=== PATIENT | male | born 1960 | race Hispanic/Latino ===

== ENCOUNTER 2020-07-08 05:48 | Day surgery (SDC) | payer BC ==
[~2020-07-08] VITALS: Ht 185.4 cm; Wt 111.1 kg
[~2020-07-08 05:48] MED LIST: AEC81 PO; AMYL1CAP63 PO; ATOR-2 PO; CLOP75TA32 PO; COLC0.6T73 PO; IBUP-2784 PO; LEVO25TA54 PO; LISI-617 PO; METO25TA6 PO
[2020-07-08] MEDS ORDERED: SODIUM CHLORIDE 0.9% 1000ML 1,000 ML IV ONE (06:16)
[2020-07-08 06:31] VITALS: BP 121/82
[2020-07-08] MEDS ORDERED: GLYCOPYRROLATE 0.2 MG/ML 5 ML VIAL ONE (07:19)
[2020-07-08] MEDS ORDERED: PROPOFOL 10 MG/ML 20ML VIAL IV ONE ×3 (07:19→07:41)
[2020-07-08] MEDS ORDERED: EPHEDRINE SULFATE 50 MG/ML AMPULE ONE (07:24)
[2020-07-08 08:06] VITALS: BP 105/69
--- NOTE | 2020-07-08 08:06 | NUR ---
POST GI RECEIVED PT AND REPORT FROM TOM GRACIA FROM GI. PT IN MILD DISCOMFORT AND NAUSEA. RECEIVED NEW ORDERS FROM [facility]ER CRNA. PT CONNECTED TO DOCTOR OF PHARMACY
[2020-07-08] MEDS ORDERED: ONDANSETRON HCL 4 MG/2 ML VIAL ONE (08:07)
[2020-07-08] MEDS ORDERED: ONDANSETRON HCL 4 MG/2 ML VIAL IVP SCH (08:15)
[2020-07-08 08:21] VITALS: BP 104/70
--- NOTE | 2020-07-08 08:36 | NUR ---
DISCHARGE PT AND SPOUSE GIVEN D/C INSTRUCTIONS. SPOUSE VOICED UNDERSTANDING. PT TAKEN OUT VIA W/C IN NO DISTRESS BY ZEV GRACIA
== END 2020-07-08 09:35 | disposition home or self-care (01) ==
LOC: ENDO 05:48 → DAH 05:48 → ENDO 09:35
PROVIDERS: ATTEND Internal Medicine Gastroenterology
DX: K86.89 Other specified diseases of pancreas (principal); R93.3 Abnormal findings on diagnostic imaging of other parts of digestive tract; R93.5 Abnormal findings on diagnostic imaging of other abdominal regions, including retroperitoneum; I10 Essential (primary) hypertension; I25.2 Old myocardial infarction; Z95.5 Presence of coronary angioplasty implant and graft; E78.5 Hyperlipidemia, unspecified; E03.9 Hypothyroidism, unspecified; Z79.899 Other long term (current) drug therapy; Z20.828 Contact with and (suspected) exposure to other viral communicable diseases
CPT/HCPCS: 36415; 43238; A4215 ×2; A4216; A4221; A4222; A4223; A4606; A4620; A4657 ×2; A4663; C9803; J2405; J2704 ×3; J3490 ×2; J7030; U0003